=== PATIENT | female | born 1945 | race Caucasian/White ===

== ENCOUNTER → 2017-04-29 | Outpatient (CLI) | payer OTHER | LOC: M.ULTRA 09:00 | DX: K80.20 Calculus of gallbladder without cholecystitis without obstruction (principal); K76.0 Fatty (change of) liver, not elsewhere classified; N28.1 Cyst of kidney, acquired ==

== ENCOUNTER 2020-08-03 12:40 | Emergency (ER) | payer OTHER ==
[~2020-08-03] VITALS: Ht 170.2 cm; Wt 74.8 kg
[2020-08-03] MEDS ORDERED: CHOLESTEROL MED (12:59)
[2020-08-03] MEDS ORDERED: B/P MED (12:59)
[2020-08-03] MEDS ORDERED: THYROID MED (12:59)
[2020-08-03] MEDS ORDERED: POTASSIUM20 PO (13:00)
[2020-08-03] MEDS ORDERED: HYDROCODON-ACE1 EAC7 PO (14:09)
[2020-08-03] MEDS ORDERED: FLEXERIL PO (14:09)
[2020-08-03 14:23] VITALS: BP 113/65
== END 2020-08-03 14:25 | disposition home or self-care (01) ==
LOC: M.ERS 12:40
DX: S32.028A Other fracture of second lumbar vertebra, initial encounter for closed fracture (principal); Z88.1 Allergy status to other antibiotic agents; Z88.2 Allergy status to sulfonamides; W18.39XA Other fall on same level, initial encounter; Y93.89 Activity, other specified; Y92.89 Other specified places as the place of occurrence of the external cause; Y99.8 Other external cause status